=== PATIENT | male | born 1960 | race Two or more races ===

== ENCOUNTER 2023-12-03 03:05 | Emergency (ER) | payer OTHER ==
[~2023-12-03] VITALS: Ht 165.1 cm; Wt 104.5 kg
[2023-12-03 03:42] VITALS: BP 158/83; TEMP 98.7
[2023-12-03 03:45] VITALS: PULSE 69; RESP 18; O2SAT 97
== END 2023-12-03 04:28 | disposition left against medical advice (07) ==
LOC: ER 03:05
DX: T78.3XXA Angioneurotic edema, initial encounter (principal); I10 Essential (primary) hypertension; Y92.89 Other specified places as the place of occurrence of the external cause

== ENCOUNTER 2025-05-30 11:04 | Emergency (ER) | payer MEDICARE, OTHER ==
[~2025-05-30] VITALS: Ht 162.6 cm; Wt 89.1 kg
--- NOTE | 2025-05-30 11:51 | ED.PDOC ---
HPI Allergic reaction HPI Comments 64y M who presents to the ED for chief complaint of allergic reaction. Pt states he was eating shrimp at 0900 this AM and states afterwards, he started to have facial swelling and urticaria. Pt denies any associated shortness of breath but got worried to due the persistence of his symptoms and came for evaluation. 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 Pt otherwise has stable vitals in the ED. Chief Complaint: Allergic Reaction Time Seen by MD: 11:48 Reviewed Notes: Nurses Notes, Medications, Allergies Allergies: Coded Allergies: NO KNOWN ALLERGIES (Unverified , 12/03/23) Home Meds Active Scripts Methylprednisolone (Medrol Dosepak) 4 Mg Raffi, 4 MG PO UD, #21 TAB UAD Prov:JAZMYNE DUQUE MD 05/30/25 Diphenhydramine Hcl (Benadryl Allergy) 25 Mg Cap, 25 MG PO BID for 5 Days, #10 CAP Prov:JAZMYNE DUQUE MD 05/30/25 Information Source: Patient Mode of Arrival: Ambulatory Brought in by: self Severity: Moderate Rash: Moderate SOB: None Difficulty swallowing: None Pruritus: Moderate Timing: Hours Duration: Since onset Prehospital treatment: None Location: Abdomen, Extremities, Face Exposed to: Food Developed: Pruritus, Rash History of: Prior Similar Episodes Modyifying Factors: None Associated Sign and Symptoms: None Past Medical History PAST MEDICAL HISTORY: DM, High Lipids, HTN Surgical History: CABG Family History Family History: Reviewed,noncontributory to illness Social History Smoker: Non-Smoker Alcohol: Denies ETOH Use Drugs: Denies Drug Use Lives In: Home Constitutional: denies: chills, diaphoresis, fatigue, fever, malaise, sweats, weakness, others EENTM: denies: blurred vision, double vision, ear bleeding, ear discharge, ear drainage, ear pain, ear ringing, eye pain, eye redness, hearing loss, mouth pain, mouth swelling, nasal discharge, nose bleeding, nose congestion, nose pain, photophobia, tearing, throat pain, throat swelling, voice changes, others Respiratory: denies: cough, hemoptysis, orthopnea, SOB at rest, shortness of breath, SOB with excertion, stridor, wheezing, others Cardiovascular: denies: chest pain, dizzy spells, diaphoresis, Dyspnea on exertion, edema, irregular heart beat, left arm pain, lightheadedness, palpitations, PND, syncope, others Gastrointestinal: denies: abdomen distended, abdominal pain, blood streaked bowels, constipated, diarrhea, dysphagia, difficulty swallowing, hematemesis, melena, nausea, poor appetite, poor fluid intake, rectal bleeding, rectal pain, vomiting, others Genitourinary: denies: burning, dysuria, flank pain, frequency, hematuria, incontinence, penile discharge, penile sore, pain, testicle pain, testicle swelling, urgency, others Neurological: denies: dizziness, fainting, headache, left sided numbness, left sided weakness, numbness, paresthesia, pre-existing deficit, right sided numbness, right sided weakness, seizure, speech problems, tingling, tremors, weakness, others Musculoskeletal: denies: back pain, gout, joint pain, joint swelling, muscle pain, muscle stiffness, neck pain, others Integumetry: reports: rash; denies: bruises, change in color, change in hair/nails, dryness, laceration, lesions, lumps, wounds, others Allergic/Immunocompromised: reports: Hives, Itching; denies: Difficulty Healing, Frequent Infections, others Hematologic/Lymphatic: denies: anemia, blood clots, easy bleeding, easy bruising, swollen glands, others Endocrine: denies: excessive hunger, excessive sweating, excessive thirst, excessive urination, flushing, intolerance to cold, intolerance to heat, unexplained weight gain, unexplained weight loss, others Psychiatric: denies: anxiety, bipolar disorder, depression, hopeless, panic disorder, schizophrenia, sleepless, suicidal, others All Other Systems: Reviewed and Negative Physical Exam General Appearance: No Apparent Distress HEENT: Normal ENT Inspection, Pharynx Normal, TMs Normal Neck: Full Range of Motion, Non-Tender, Normal, Normal Inspection Respiratory: Chest Non-Tender, Lungs Clear, No Accessory Muscle Use, No Respiratory Distress, Normal Breath Sounds Cardiovascular: No Edema, No JVD, No Murmur, No Gallop, Normal Peripheral Pulses, Regular Rate/Rhythm Breast Exam: Deferred Gastrointestinal: No Organomegaly, Non Tender, No Pulsatile Mass, Normal Bowel Sounds, Soft Genitalia: Deferred Pelvic: Deferred Rectal: Deferred Extremities: No calf tenderness, Normal capillary refill, Normal inspection, Normal range of motion, Non-tender, No pedal edema Musculoskeletal : Apperance: Normal Neurologic: Alert, brinell tester II-XII nml as Tested, No Motor Deficits, Normal Affect, Normal Mood, No Sensory Deficits Cerebellar Function: Normal Reflexes: Normal Skin: Dry, Normal Color, Warm Lymphatic: No Adenopathy Was a procedure done? Was a procedure done?: No Differential diagnosis (all) Differential Diagnosis: Contact Dermatitis, Drug Reaction, Urticaria Other Differential Diagnosis ALLERGIC REACTION X-Ray, Labs, Meds, VS Vital Signs Date Time Temp Pulse Resp B/P (MAP) Pulse Ox O2 Delivery O2 Flow Rate FiO2 05/30/25 11:54 76 16 96 Room Air 05/30/25 11:54 98.2 76 16 153/83 (106) 96 98.2 05/30/25 11:09 98.2 76 16 153/83 96 98.2 Current Medications Medications (Trade) Dose Ordered Sig/Tyesha Route Start Time Stop Time Status Last Admin Diphenhydramine HCl (Benadryl Injection) 25 mg ONCE ONCE IV 05/30/25 11:45 05/30/25 11:46 DC 05/30/25 11:55 Methylprednisolone Sodium Succinate (Solu Medrol) 125 mg ONCE ONCE IV 05/30/25 11:45 05/30/25 11:46 DC 05/30/25 11:55 IV Hep-Lock was established. The patient was given Benadryl 25 mg IV push The patient was given Solu-Medrol 125 mg IV push The patient is being discharged The patient was given a prescription of Benadryl and a Medrol Dosepak The patient is saturating with a 96% saturations patient will return to emergency condition worsens Time of 1ST Reevaluation: 12:20 Reevaluation 1ST: Unchanged Patient Education/Counseling: Diagnosis, Treatment, Prognosis, Need For Follow Up Family Education/Counseling: No Family Present SEPSIS Sepsis Screen Date sepsis recognized/suspect: May 30, 2025 Time Sepsis recognized/suspect: 1112 Recent Procedure: No On Antibiotic Therapy: No Respiratory Rate >20: No Heart Rate >90: No Temp<36 C (96.8 F) or >38.3 C: No SBP <90 or MAP <65 mmHG: No New Acute Mental Status Change: No Is the patient on CPAP, BIPAP,: No Physician Orders Heplock Iv (05/30/25 ) Vital Signs Date Time Temp Pulse Resp B/P (MAP) Pulse Ox O2 Delivery O2 Flow Rate FiO2 05/30/25 11:54 76 16 96 Room Air 05/30/25 11:54 98.2 76 16 153/83 (106) 96 98.2 05/30/25 11:09 98.2 76 16 153/83 96 98.2 Medications Medications Dose Ordered Sig/Tyesha Route Start Time Stop Time Status Last Admin Dose Admin Diphenhydramine HCl 25 mg ONCE ONCE IV 05/30/25 11:45 05/30/25 11:46 DC 05/30/25 11:55 Methylprednisolone Sodium Succinate 125 mg ONCE ONCE IV 05/30/25 11:45 05/30/25 11:46 DC 05/30/25 11:55 Departure 1 Departure Time of Disposition: 12:44 Impression: Primary Impression: Acute allergic reaction Qualified Codes: T78.40XA - Allergy, unspecified, initial encounter Disposition: HOME / SELF CARE / HOMELESS Condition: Fair e-Prescriptions Methylprednisolone (Medrol Dosepak) 4 Mg Raffi 4 MG PO UD, #21 TAB UAD Prov: JAZMYNE DUQUE MD 05/30/25 Diphenhydramine Hcl (Benadryl Allergy) 25 Mg Cap 25 MG PO BID for 5 Days, #10 CAP Prov: JAZMYNE DUQUE MD 05/30/25 Discharged With: Self Critical Care Note Critical Care Time?: No Stability Stability form required: No Heart Score Heart Score: Heart Score Response (Comments) Value History N/A 0 EKG N/A 0 Age N/A 0 Risk Factors N/A 0 Troponin N/A 0 Total 0 I personally scribed for JAZMYNE DUQUE MD ([email or web address]) on 05/30/25 at 11:51. Electronically submitted by Doris Stephens ([email or web address]). JAZMYNE DUQUE MD May 30, 2025 11:51
[2025-05-30 11:54] VITALS: BP 153/83; PULSE 76; RESP 16; TEMP 98.2; O2SAT 96
[2025-05-30] MEDS: diphenhydrAMINE HCL 50 MG/1 ML VL IV ONE (11:55)
[2025-05-30] MEDS: methylPREDNISolone SOD SUCC 125 MG/2 ML VL IV ONE (11:55)
[2025-05-30] MEDS ORDERED: DIPH25CA66 PO (12:43)
[2025-05-30] MEDS ORDERED: METH4PAK PO (12:43)
== END 2025-05-30 12:48 | disposition home or self-care (01) ==
LOC: ER 11:04
DX: L50.9 Urticaria, unspecified (principal); T78.40XA Allergy, unspecified, initial encounter; E11.9 Type 2 diabetes mellitus without complications; I10 Essential (primary) hypertension; X58.XXXA Exposure to other specified factors, initial encounter
CPT/HCPCS: 96374; 96375; 99284; J1200; J2919